=== PATIENT | female | born 1970 | race Caucasian/White ===

== ENCOUNTER 2017-11-15 20:35 | Emergency (ER) | payer MEDICARE, MEDICAID, SELFPAY ==
[2017-11-15 20:39] VITALS: PULSE 77; RESP 15; TEMP 36.8; O2SAT 96; BMI 42.7
[2017-11-15 20:52] VITALS: BP 170/149
--- NOTE | 2017-11-15 21:00 | ED.DCSUM_ITS ---
- ER Visit Summary Date of Service: 11/15/17 Chief Complaint: Breakthrough seizures ?2 History of Present Illness: The patient is a 46 F history of prior stroke at 19 with left-sided weakness. Known history of seizure disorder since that time. Treated with Topamax. Says she has had a seizure for 5 or 6 years. Been taking her medications. Denies any recent head injury. States that tonight she had 2 seizures one after the other 1845. Has not had one for last several hours. She denies any fall or injury. She was seated when this occurred. She is with her ex who witnessed the event. Currently states she feels fine. She has chronic headaches and says she is a mild headache currently. That is not abnormal for her. She denies any fever. She denies any recent head trauma. She is on no anticoagulants. Physical Examination: Well-appearing middle-age female. Initial blood pressure is 170/149 over to be rechecked. Temperature 98.2. Pulse ox 96% on room air no signs of hypoxia. She is currently in no distress. HEENT exam unremarkable. Pupils round reactive light. Normal speech. No facial droop. No trauma to her face or scalp. No hematomas. Neck nontender. No meningismus. Lungs clear to auscultation bilaterally. Heart regular rate and rhythm no murmur. Rate in the 70s. Abdomen is obese and soft. Nontender no peritoneal signs. The right upper right lower extremity unremarkable with normal range of motion neurovascularly. She has severe weakness to the left arm and left leg which is chronic from her stroke many years ago. Neurologically she is awake and alert. Answering questions. She has a chronic left upper and lower extremity weakness from the prior stroke but no other acute neurological findings. Test Results: BMP is unremarkable except for potassium of 3.3. Normal gap. Normal creatinine. Emergency Department Course and Treatment: Patient will be observed. We will check a chemistry panel. Reevaluate her blood pressure. Treatment Plan: Repeat exam patient is doing well at 2155. She has had no seizure activity in the ER. We discussed a CT of her brain which she deferred. She will be discharged to home. Disposition: Discharge Impression: Recurrent seizures ?2 with a history of prior seizure disorder. Prior CVA with left-sided weakness which is chronic This note was generated with [employer] software. It may contain incorrect words, spelling, and punctuation that were not noted in review of the chart prior to signing ED Disposition - Plan for ED Patient: Chief Complaint: Seizure Referrals: [facility],Out of [Primary Care Provider] -
[2017-11-15] MEDS: Ketorolac 30 MG/ML Syringe IV (21:03)
[2017-11-15 21:13] LABS: Anion Gap 7 (5-15); BUN 13 mg/dL (7-18); BUN/Creat Ratio 18.1 RATIO (10-20); Calcium,Total 8.3 mg/dL (8.5-10.1); Chloride 106 mmol/L (98-107); Creatinine, Serum 0.72 mg/dL (0.55-1.02); EST Glomerular Filtration Rate 92 mL/min (>60); Est Glom Filt Rate - Afr Amer 111 mL/min (>60); Estimated Creatinine Clearance 113.74 ml/min; Glucose 131 mg/dL (70-110); Potassium 3.3 mmol/L (3.5-5.1); Sodium Level 142 mmol/L (136-145)
--- NOTE | 2017-11-15 21:57 | ED.DEP ---
ED Disposition - Plan for ED Patient: Disposition: Home or Assisted Living Chief Complaint: Seizure Instructions: ED Seizure Recurrent Referrals: [facility],Out of [Primary Care Provider] - As soon as possible Additional Instructions: Return to ER feeling worse. Continue current medications. Follow-up your primary care physician.
[2017-11-15 22:02] VITALS: BP 118/74; PULSE 79; RESP 14; O2SAT 97
[2017-11-15] MEDS: HYDROcodone Bitartrate/Apap 5/325 Tablet PO (22:03)
== END 2017-11-15 22:12 | disposition home or self-care (01) ==
PROVIDERS: Emergency Provider Emergency Medicine
DX: G40.909 Epilepsy, unspecified, not intractable, without status epilepticus (principal); I69.354 Hemiplegia and hemiparesis following cerebral infarction affecting left non-dominant side; Z79.82 Long term (current) use of aspirin; Z79.899 Other long term (current) drug therapy
CPT/HCPCS: 80048; 96374; 99285; A4216